=== PATIENT | male | born 1995 | race Caucasian/White ===

== ENCOUNTER 2019-04-13 14:41 | Emergency (ER) | payer OTHER ==
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
[2019-04-13] MEDS ORDERED: KETOROLAC TROMETHAMINE 60 MG/2 ML SDV IM ONE (15:11)
[2019-04-13] MEDS ORDERED: DEXAMETHASONE SOD PHOS INJ 10 MG/1 ML VIAL IM ONE (15:11)
--- NOTE | 2019-04-13 15:38 | RADIOLOGY REPORT (SQ) ---
EXAM DESCRIPTION: L SPINE WHOLE COMPLETED DATE/TIME: 04/13/2019 3:24 pm REASON FOR STUDY: fall low back pain COMPARISON: None. NUMBER OF VIEWS: Five views including obliques. TECHNIQUE: AP, lateral, oblique, and sacral radiographic images acquired of the lumbar spine. LIMITATIONS: None. FINDINGS: MINERALIZATION: Normal. SEGMENTATION: Normal. No transitional anatomy. ALIGNMENT: Normal. VERTEBRAE: Maintained height. No fracture or worrisome bone lesion. DISCS: Preserved height. No significant osteophytes or end plate irregularity. POSTERIOR ELEMENTS: Pedicles and facets are intact. No pars defect or posterior arch defects. HARDWARE: None in the spine. PARASPINAL SOFT TISSUES: Normal. PELVIS: Intact as visualized. No fractures or worrisome bone lesions. SI joints intact. OTHER: No other significant finding. IMPRESSION: NORMAL 5 VIEW LUMBAR SPINE. TECHNICAL DOCUMENTATION: JOB ID: [id number] [employer]- All Rights Reserved Reading location - IP/workstation name: [email or web address]
[2019-04-13] MEDS ORDERED: DIAZEPAM INJ 10 MG/2 ML DISP.SYRIN IM ONE (17:06)
[2019-04-13] MEDS ORDERED: ACETAMINOPHEN 325 MG TABLET PO ONE (17:07)
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
[2019-04-13] MEDS ORDERED: LIDOCAINE 2% URO-JET 5 ML KIT MM ONE (18:55)
[2019-04-13 19:19] LABS: ABSOLUTE LYMPHOCYTES (AUTO) 0.7 10^3/uL (0.5-4.7); ABSOLUTE MONOCYTES (AUTO) 0.1 10^3/uL (0.1-1.4); ABSOLUTE NEUT (AUTO) 12.8 10^3/uL (1.7-8.2); BASOPHILS % (AUTO) 0.2 % (0-2); EOSINOPHILS % (AUTO) 0.2 % (0-6); HEMATOCRIT 50.6 % (37.9-51.0); HEMOGLOBIN 17.3 g/dL (13.5-17.0); LYMPHOCYTES % (AUTO) 5.2 % (13-45); MEAN CORPUSCULAR HEMOGLOBIN 30.3 pg (27.0-33.4); MEAN CORPUSCULAR HGB CONC 34.2 g/dL (32.0-36.0); MEAN CORPUSCULAR VOLUME 89 fl (80-97); MONOCYTES % (AUTO) 0.9 % (3-13); PLATELET COUNT 241 10^3/uL (150-450); RED BLOOD COUNT 5.72 10^6/uL (4.35-5.55); RED CELL DISTRIBUTION WIDTH 13.2 % (11.5-14.0); SEGMENTED NEUTROPHILS % (AUTO) 93.5 % (42-78); TOTAL CELLS COUNTED % (AUTO) 100 %; WHITE BLOOD COUNT 13.7 10^3/uL (4.0-10.5)
[2019-04-13 19:25] LABS: APPEARANCE,URINE CLEAR; BILIRUBIN,URINE NEGATIVE (NEGATIVE); COLOR,URINE YELLOW; GLUCOSE, URINE NEGATIVE (NEGATIVE); KETONES,URINE NEGATIVE (NEGATIVE); LEUKOCYTE ESTERASE,URINE NEGATIVE (NEGATIVE); NITRITE,URINE NEGATIVE (NEGATIVE); PROTEIN,URINE NEGATIVE (NEGATIVE); URINE SPECIFIC GRAVITY 1.014; UROBILINOGEN,URINE NEGATIVE mg/dL (<2.0)
[2019-04-13 19:38] LABS: ALBUMIN 5.4 g/dL (3.5-5.0); ALKALINE PHOSPHATASE 64 U/L (38-126); ANION GAP 13 (5-19); ASPARTATE AMINO TRANSFERASE 26 U/L (17-59); BILIRUBIN,DIRECT 0.2 mg/dL (0.0-0.4); BLOOD UREA NITROGEN 22 mg/dL (7-20); CALCIUM 10.6 mg/dL (8.4-10.2); CARBON DIOXIDE 24 mmol/L (22-30); CHLORIDE 103 mmol/L (98-107); GLUCOSE 113 mg/dL (75-110); POTASSIUM 4.1 mmol/L (3.6-5.0); TOTAL PROTEIN 8.6 g/dL (6.3-8.2)
--- NOTE | 2019-04-13 21:45 | RADIOLOGY REPORT (SQ) ---
EXAM: MR LUMBAR SPINE WITHOUT THEN WITH IV CONTRAST CLINICAL INDICATION: 24-year-old male status post fall with urinary retention and severe low back pain. COMPARISON: None. TECHNIQUE: Multiplanar, multi-sequence MR images of the lumbar spine without contrast. FINDINGS: Lumbar spine: Note is made of six lumbar type vertebral bodies with lumbarization of the S1 level. For the purposes of this examination, the lowest lumbar level is designated as S1. Slight dextro curvature of the lumbar spine versus patient positioning. There is minimal straightening of the lumbar spine which may be secondary to positioning for examination. Signal intensity and morphology of the vertebral bodies and intervertebral disk spaces is within normal limits. No increase in signal intensity is seen on STIR images to suggest acute abnormalities. The pre-and paravertebral soft tissues are within normal limits. The visualized spinal cord demonstrates normal caliber, signal intensity and morphology. No abnormal postcontrast enhancement. L1-2: within normal limits without central or neuroforaminal narrowing. L2-3: within normal limits without central or neuroforaminal narrowing. L3-4: within normal limits without central or neuroforaminal narrowing. L4-5: within normal limits without central or neuroforaminal narrowing. L5-S1: Mild diffuse disk bulge with small focal central disk herniation. Increased T2 signal intensity present within the posterior disk space within the small focal central herniated disk compatible with annular tear or fissure. No central spinal canal or neuroforaminal narrowing. Limited abdominal imaging is within normal limits. IMPRESSION: 1. No fracture or dislocation. 2. Mild diffuse disk bulge with small focal central disk herniation. Increased T2 signal intensity present within the posterior disk space within the small focal central herniated disk compatible with annular tear or fissure. No central spinal canal or neuroforaminal narrowing.
[2019-04-13 23:14] VITALS: BP 128/69
== END 2019-04-13 23:13 | disposition home or self-care (01) ==
LOC: ER 14:41
DX: M54.41 Lumbago with sciatica, right side (principal); M51.26 Other intervertebral disc displacement, lumbar region; M54.9 Dorsalgia, unspecified; G89.29 Other chronic pain
CPT/HCPCS: 99284; 96372; 51701; 36415; 85025; 80053; 81001; 72158; 72110; A9576; J3360; J1885; J1100; J3490